=== PATIENT | female | born 1975 | race Caucasian/White ===

== ENCOUNTER 2022-10-12 20:03 | Outpatient (CLI) | payer MEDICARE, MEDICAID, SELFPAY | END 2022-10-12 20:04 | disposition home or self-care (01) | LOC: AMB 10-16 11:16 | PROVIDERS: PCP Family Medicine; Visit Provider Family Medicine | DX: G40.909 Epilepsy, unspecified, not intractable, without status epilepticus (principal) | CPT/HCPCS: A0998 ==